=== PATIENT | male | born 1990 | race Caucasian/White ===

== ENCOUNTER 2018-10-13 12:46 | Emergency (ER) | payer MEDICAID, OTHER ==
[~2018-10-13] VITALS: Wt 90.0 kg
[2018-10-13 12:49] VITALS: BP 137/78; PULSE 98; RESP 18
[2018-10-13] MEDS ORDERED: ACETAMINOPHEN 325 MG TAB PO ONE (13:30)
[2018-10-13] MEDS ORDERED: CEPHALEXIN 500 MG CAP PO ONE (13:30)
[2018-10-13] MEDS ORDERED: IBUP-1542 PO (14:01)
[2018-10-13] MEDS ORDERED: CEPH-443 PO (14:01)
--- NOTE | 2018-10-13 14:04 | ERD ---
ER Documentation Chief Complaint Chief Complaint MOUTH UNK MASS/ABCESS? X 5 DAYS HPI 28-year-old male was presents with swelling and tenderness on the inside of his mouth for the last 5 days. He did have some pain in the left frontal tooth prior to the swelling. Denies fevers, difficulty swallowing, difficulty karen athing. He has had a similar episode in the past ROS All systems reviewed and are negative except as per history of present illness. Medications Home Meds Active Scripts Ibuprofen* (Motrin*) 600 Mg Tab, 600 MG PO Q6, #15 TAB Prov:GABRIEL LANDRY MD 10/13/18 Cephalexin* (Keflex*) 500 Mg Capsule, 500 MG PO QID for 10 Days, CAP Prov:GABRIEL LANDRY MD 10/13/18 Allergies Allergies: Coded Allergies: No Known Allergy (Unverified , 10/13/18) PMhx/Soc Medical and Surgical Hx: pt denies Medical Hx, pt denies Surgical Hx Hx Alcohol Use: No Hx Substance Use: No Hx Tobacco Use: No Smoking Status: Never smoker FmHx Family History: No diabetes, No coronary disease, No other Physical Exam Vitals Vital Signs Date Temp Pulse Resp B/P (MAP) Pulse Ox O2 O2 Flow FiO2 Time Delivery Rate 10/13/18 98.5 98 18 137/78 99 12:49 (97) Physical Exam Const: No acute distress Head: Atraumatic Eyes: Normal Conjunctiva ENT: Normal External Ears, Nose and Mouth. Poor dentition. There is fluctuance and redness and swelling on the roof the mouth corresponding to the left upper frontal tooth. No signs of airway obstruction. Uvula midline. No active discharge or bleeding. Neck: Full range of motion. No meningismus. Resp: Clear to auscultation bilaterally Cardio: Regular rate and rhythm, no murmurs Abd: Soft, non tender, non distended. Normal bowel sounds Skin: No petechiae or rashes Back: No midline or flank tenderness Ext: No cyanosis, or edema Neur: Awake and alert Psych: Normal Mood and Affect Results 24 hrs Current Medications Medications Dose Sig/Ruben Start Time Status Last (Trade) Ordered Route PRN Stop Time Admin Dose Reason Admin 650 mg ONCE ONCE 10/13/18 DC 10/13/18 Acetaminophen PO 13:30 13:31 (Tylenol 10/13/18 13:31 Tab) Cephalexin 500 mg ONCE ONCE 10/13/18 DC 10/13/18 (Keflex) PO 13:30 13:31 10/13/18 13:31 Procedures/MDM Patient presents with what appears to be a dental abscess involving the hard palate corresponding to the left upper frontal tooth. No signs of airway obstruction, active discharge. Patient was given Keflex and Tylenol. Procedure note-sterile technique 1 cc of lidocaine was used for local infiltration of the hard palate abscess. 18-gauge needle was used to aspirate the abscess approximately 2 to 3 cc of purulent material was aspirated. Patient tolerated procedure well and bleeding stopped with pressure. She will be discharged home with a prescription of Keflex, ibuprofen, recommendations for dental evaluation and follow-up for definitive treatment of what appears to be dental abscess originating from the left upper frontal tooth. He should return for difficulty swallowing, difficulty breathing, fevers, new worsening symptoms. The patient was stable with no new complaints during the ER course. Clinically, there is no current evidence to suggest meningitis, sepsis, acute abdomen, pneumonia, stroke, acute coronary syndrome, pulmonary embolism, aortic dissection or any other emergent condition appearing to require further evaluation or hospitalization. Patient counseled regarding my diagnostic impression and care plan. Prior to discharge all questions answered. Pt agrees with treatment plan and understands strict return precautions. Pt is instructed to follow up with primary care provider within 24-48 hours. Precautionary instructions provided including instructions to return to the ER if not improving or for any worsening or changing symptoms or concerns. Departure Diagnosis: Primary Impression: Dental abscess Condition: Stable Patient Instructions: Dental Abscess Referrals: [facility] ([facility]) Additional Instructions: See dentist for further evaluation and treatment of source of abscess. Recheck otherwise for difficulty swallowing, difficulty breathing, new worsening symptoms. GABRIEL LANDRY MD Oct 13, 2018 14:04
== END 2018-10-13 14:22 | disposition home or self-care (01) ==
LOC: FTE 12:46
DX: K04.7 Periapical abscess without sinus (principal)
CPT/HCPCS: Z7502; Z7610; 99283